=== PATIENT | male | born 1995 | race Caucasian/White ===

== ENCOUNTER → 2019-07-01 | Outpatient (CLI) | payer SELFPAY ==
--- NOTE | 2019-07-02 07:32 | REP ---
CHEST, TWO VIEWS: There is no evidence of acute infiltrate. No pleural effusion is seen. The heart is normal in size. The mediastinal silhouette is unremarkable. The visualized osseous structures are intact. IMPRESSION: No acute pulmonary disease. Electronically Signed by Ariel Rolon MD 07/02/2019 05:05 P
== END ==
LOC: M WUC 16:15
PROVIDERS: ATTEND Physician Assistant
DX: R05 Cough (principal); R06.02 Shortness of breath

== ENCOUNTER → 2019-07-18 | Outpatient (REF) | payer OTHER | LOC: M WUC 13:24 | PROVIDERS: ATTEND Physician Assistant | DX: R05 Cough (principal); Z11.59 Encounter for screening for other viral diseases ==